=== PATIENT | male | born 1945 | race African-American/Black ===

== ENCOUNTER 2023-07-08 08:40 | Emergency (ER) | payer OTHER ==
[2023-07-08 10:11] LABS: Absolute Eosinophils 0.1 K/uL (0-0.5); Absolute Lymphocytes (CBC) 1.4 K/uL (0.7-4.9); Absolute Monocytes 0.5 K/uL (0.1-1.3); Basophils % 0.9 % (0-1.3); Eosinophils % 1.6 % (0-4.4); Hematocrit 41.5 % (39.6-49.0); Hemoglobin 12.9 g/dL (13.6-17.9); Lymphocytes % 27.5 % (15.3-44.8); MCH 24.1 pg (27.0-35.0); MCV 77.8 fL (80-100); MPV 9.3 fL (7.6-11.3); Monocytes % 9.3 % (3.3-12.3); Neutrophils % 60.7 % (41.7-73.7); Nucleated Red Blood Cells % 0.1 % (0-0); Platelets 135 thou/uL (152-406); RBC Red Blood Cell Count 5.34 M/uL (4.33-5.43); Red Cell Distribution Width 15.9 % (12.1-15.2)
--- NOTE | 2023-07-08 10:17 | RAD REPORT ---
EXAM DESCRIPTION: RAD - Chest Single View - 07/08/2023 9:59 am CLINICAL HISTORY: volume overload Chest pain. COMPARISON: CHEST SINGLE VIEW dated 05/11/2013; CHEST SINGLE VIEW dated 02/19/2010; CHEST PA AND LAT 2 VIEW dated 02/13/2010 FINDINGS: Portable technique limits examination quality. Mild to moderate pulmonary edema suspected. The heart is moderately enlarged. No displaced fractures. IMPRESSION: Mild to moderate CHF versus volume overload pattern
[2023-07-08 11:54] LABS: Albumin 3.3 g/dL (3.4-5.0); Anion Gap 6.3 mEq/L (5.0-15.0); Bilirubin Direct 0.2 mg/dL (0-0.2); Bilirubin Indirect, Calculated 0.8 mg/dL (0.2-0.8); Globulin 3.4 g/dL (2.3-3.5); Potassium 4.3 mEq/L (3.5-5.1); Protein, Total 6.7 g/dL (6.4-8.2); Troponin High Sensitivity 14.7 pg/mL (<58.9)
--- NOTE | 2023-07-08 12:05 | ER ---
Nurse's Notes [facility] Name: Glynn Bowie Age: 78 yrs Sex: Male : 1945 Arrival Date: 07/08/2023 Time: 08:40 Bed 4 Private MD: Diagnosis: Volume Overload Presentation: 07/07 08:55 Chief complaint: Patient states: [place] feet swelling for unknown amount of time but kc6 states it really started bothering him yesterday. pt also reports chest pain and dizziness. Coronavirus screen: At this time, the client does not indicate any symptoms associated with coronavirus-19. Ebola Screen: No symptoms or risks identified at this time. Initial Sepsis Screen: Does the patient meet any 2 criteria? No. Patient's initial sepsis screen is negative. Does the patient have a suspected source of infection? No. Patient's initial sepsis screen is negative. Risk Assessment: Do you want to hurt yourself or someone else? Patient reports no desire to harm self or others. Onset of symptoms was July 08, 2023. 08:55 Method Of Arrival: Wheelchair kc6 08:55 Acuity: JANESSA 3 kc6 Triage Assessment: 08:56 General: Appears in no apparent distress. comfortable, well groomed, well developed, kc6 Behavior is calm, cooperative, appropriate for age. Pain: Complains of pain in chest. EENT: No signs and/or symptoms were reported regarding the EENT system. Neuro: Level of Consciousness is awake, alert, obeys commands, Oriented to person, place, time, situation, Appropriate for age Reports dizziness. Cardiovascular: Reports chest pain, Heart tones S1 S2 present Capillary refill < 3 seconds Edema is 2+ to left foot, left toes, right foot and right toes pitting to left foot, left toes, right foot and right toes. Respiratory: Airway is patent Trachea midline Respiratory effort is even, unlabored, Respiratory pattern is regular, symmetrical. GI: No signs and/or symptoms were reported involving the gastrointestinal system. : No signs and/or symptoms were reported regarding the genitourinary system. Derm: Skin is intact, is healthy with good turgor, Skin is pink, warm \T\ dry. Musculoskeletal: No signs and/or symptoms reported regarding the musculoskeletal system. Circulation, motion, and sensation intact. Capillary refill < 3 seconds, Range of motion: intact in all extremities. Historical: - Allergies: 08:52 No Known Allergies; ll1 - PMHx: 08:52 Hypertensive disorder; ll1 - Immunization history:: Adult Immunizations up to date. - Infectious Disease History:: Denies. - Social history:: Smoking status: Patient denies any tobacco usage or history of. Screenin:57 [facility] ED Fall Risk Assessment (Adult) History of falling in the last 3 months, kc6 including since admission No falls in past 3 months (0 pts) Confusion or Disorientation No (0 pts) Intoxicated or Sedated No (0 pts) Impaired Gait No (0 pts) Mobility Assist Device Used No (0 pt) Altered Elimination No (0 pt) Score/Fall Risk Level 0 - 2 = Low Risk. Abuse screen: Denies threats or abuse. Denies injuries from another. Nutritional screening: No deficits noted. Tuberculosis screening: No symptoms or risk factors identified. Assessment: 08:57 Reassessment: please see triage. kc6 09:57 Reassessment: Patient appears in no apparent distress at this time. No changes from [facility] previously documented assessment. Patient and/or family updated on plan of care and expected duration. Pain level reassessed. Patient is alert, oriented x 3, equal unlabored respirations, skin warm/dry/pink. 10:57 Reassessment: Patient appears in no apparent distress at this time. No changes from kc6 previously documented assessment. Patient and/or family updated on plan of care and expected duration. Pain level reassessed. Patient is alert, oriented x 3, equal unlabored respirations, skin warm/dry/pink. 11:51 Reassessment: Patient appears in no apparent distress at this time. No changes from kc6 previously documented assessment. Patient and/or family updated on plan of care and expected duration. Pain level reassessed. Patient is alert, oriented x 3, equal unlabored respirations, skin warm/dry/pink. 12:34 Reassessment: Patient appears in no apparent distress at this time. Patient and/or ph family updated on plan of care and expected duration. Pain level reassessed. Patient is alert, oriented x 3, equal unlabored respirations, skin warm/dry/pink. Pt d/c home w/ prescription for Lasix, instructed to follow-up w/ PCP and belt loop cutter and to return to ED for worsening symptoms. Vital Signs: 08:55 BP 184 / 115; Pulse 73; Resp 16 S; Pulse Ox 100% on R/A; Weight 83.46 kg (R); Height 5 kc6 ft. 7 in. (R); 09:13 BP 166 / 107; kc6 10:27 BP 107 / 103; Pulse 73; Resp 16 S; Pulse Ox 100% on R/A; kc6 11:51 BP 106 / 109; Pulse 65; Resp 16 S; Pulse Ox 100% on R/A; kc6 12:05 BP 169 / 109; ec2 08:55 Body Mass Index 28.82 (83.46 kg, 170.18 cm) 6 ED Course: 08:42 Patient arrived in ED. rg4 08:52 Arm band placed on Patient placed in an exam room, on a stretcher. ll1 08:54 Janice Jiang, RN is Primary Nurse. ph 08:55 Stevie Dubon MD is Attending Physician. ec2 08:56 Triage completed. kc6 08:56 EKG completed in triage. Results shown to MD. kc6 08:58 Patient has correct armband on for positive identification. Bed in low position. Call kc6 light in reach. Side rails up X2. Adult w/ patient. Client placed on continuous cardiac and pulse oximetry monitoring. NIBP monitoring applied. security monitor on. Warm blanket given. 09:28 Amie Noel, RN is Primary Nurse. kc6 09:32 Initial lab(s) drawn, sent to lab. Inserted saline lock: 20 gauge in right antecubital ph area, using aseptic technique. Blood collected. 09:32 Basic Metabolic Panel Sent. ph 09:32 CBC with Diff Sent. ph 09:32 NT PRO-BNP Sent. ph 09:32 Troponin HS Sent. ph 09:33 Provided Education on: Estimated time for test results and use of call light. ph 09:33 LFT's Sent. ph 10:01 XRAY Chest (1 view) In Process Unspecified. EDMS 12:04 Fabiano Matute MD is Hospitalizing Provider. ec2 12:35 No provider procedures requiring assistance completed. IV discontinued, intact, ph bleeding controlled, No redness/swelling at site. Pressure dressing applied. Administered Medications: 12:25 Drug: Furosemide IVP 40 mg IVP once; give over 2 minutes Route: IVP; Site: right ph antecubital; 12:34 Follow up: Response: No adverse reaction; Medication administered at discharge. ph Medication: 09:33 VIS not applicable for this client. ph Outcome: 12:05 Decision to Hospitalize by Provider. ec2 12:12 Discharge ordered by . ec2 12:35 Discharged to home ambulatory, with friend, 12:35 Condition: good 12:35 Discharge instructions given to patient, Instructed on discharge instructions, follow up and referral plans. medication usage, Demonstrated understanding of instructions, follow-up care, medications, Prescriptions given X 1, 12:36 Patient left the ED. ph Signatures: Dispatcher [employer] Janice Biswas RN RN ph Brooklynn Montemayor rg4 Muriel Lino RN RN ll1 Amie Noel RN RN kc6 Stevie Dubon MD MD ec2
--- NOTE | 2023-07-08 12:05 | EDPHYS ---
Physician Documentation [facility] [place], [place] Name: Glynn Bowie Age: 78 yrs Sex: Male : 1945 Arrival Date: 07/08/2023 Time: 08:40 Bed 4 Private MD: ED Physician Stevie Dubon HPI: 07/07 09:10 This 78 yrs old Black Male presents to ER via Wheelchair with complaints of Swelling of ec2 Foot. 09:10 Patient arrives today for evaluation of bilateral lower extremity swelling. Patient ec2 reports that he has been having bilateral lower extremity swelling for the past several days. No reported history of heart failure, liver disease or kidney disease. Patient reports no significant difficulty breathing. Reports occasional chest pain as well.. Historical: - Allergies: 08:52 No Known Allergies; ll1 - PMHx: 08:52 Hypertensive disorder; ll1 - Immunization history:: Adult Immunizations up to date. - Infectious Disease History:: Denies. - Social history:: Smoking status: Patient denies any tobacco usage or history of. ROS: 09:10 Constitutional: as per hpi ec2 Exam: 09:10 Constitutional: GEN: NAD Head: atraumatic Eyes: EOMI Ears: External ears are ec2 normal. CV: regular rate, 2+ bilateral lower extremity edema. LUNGS: no respiratory distress ABD: non-distended SKIN: no evidence of rashes MSK: no evidence of trauma NEURO: moves all extremities equally Vital Signs: 08:55 BP 184 / 115; Pulse 73; Resp 16 S; Pulse Ox 100% on R/A; Weight 83.46 kg (R); Height 5 kc6 ft. 7 in. (R); 09:13 BP 166 / 107; kc6 10:27 BP 107 / 103; Pulse 73; Resp 16 S; Pulse Ox 100% on R/A; kc6 11:51 BP 106 / 109; Pulse 65; Resp 16 S; Pulse Ox 100% on R/A; kc6 12:05 BP 169 / 109; ec2 08:55 Body Mass Index 28.82 (83.46 kg, 170.18 cm) kc6 MDM: 09:07 Patient medically screened. ec2 09:10 Data reviewed: vital signs. ED course: Patient arrives today for evaluation of ec2 bilateral lower extremity edema. Examination remarkable for lower extremity as noted above. Will obtain lab work, chest x-ray. Evaluating for electrolyte disturbances, volume overload, CHF, kidney disease, liver disease. EKG obtained, independently reviewed and interpreted by me, shows normal sinus rhythm, rate of 70, no acute ST segment elevations, intervals are nonconcerning, PAC noted. . 10:23 ED course: CBC is reassuring, chest x-ray shows moderate CHF with volume overload. . ec2 11:57 ED course: Metabolic profile is reassuring, BNP elevated at 619, LFTs generally ec2 reassuring. Troponin within normal ranges. Patient with marked volume overload, new diagnosis of likely CHF, will admit for diuresis and further cardiac evaluation. Will give the patient Lasix, discussed with hospitalist, pending admission. . 12:08 ED course: Discussed case with the hospitalist, Dr. Matute, shows that he will see the ec2 patient outpatient, will give patient Lasix, prescribe Lasix for home and have him follow-up outpatient.. 07/07 09:10 Order name: Basic Metabolic Panel; Complete Time: 11:57 ec2 07/07 09:10 Order name: CBC with Diff; Complete Time: 10:22 ec2 07/07 09:10 Order name: NT PRO-BNP; Complete Time: 11:57 ec2 07/07 09:10 Order name: Troponin HS; Complete Time: 11:57 ec2 07/07 09:10 Order name: LFT's; Complete Time: 11:57 ec2 07/07 09:10 Order name: XRAY Chest (1 view); Complete Time: 10:22 ec2 07/07 09:10 Order name: EKG; Complete Time: : ec2 07/07 09:10 Order name: Cardiac monitoring; Complete Time: :13 ec2 07/07 09:10 Order name: EKG - Nurse/Tech; Complete Time: : ec2 07/07 09:10 Order name: IV Saline Lock; Complete Time: :32 ec2 07/07 09:10 Order name: Labs collected and sent; Complete Time: : ec2 07/07 09:10 Order name: O2 Per Protocol; Complete Time: :12 ec2 07/07 09:10 Order name: O2 Sat Monitoring; Complete Time: : ec2 07/07 10:45 Order name: Labs - recollect needed: Chemistry 2nd re collect; Complete Time: 11:00 ll1 Administered Medications: 12:25 Drug: Furosemide IVP 40 mg IVP once; give over 2 minutes Route: IVP; Site: right ph antecubital; 12:34 Follow up: Response: No adverse reaction; Medication administered at discharge. ph Disposition Summary: 07/08/23 12:12 Discharge Ordered Notes: Location: Home(07/08/23 12:12) ec2 Condition: Stable(07/08/23 12:12) ec2 Diagnosis - Volume Overload ec2 Followup: ec2 - With: Private Physician - When: - Reason: Re-evaluation by your physician Discharge Instructions: - Discharge Summary Sheet ec2 Forms: - Medication Reconciliation Form ec2 - Thank You Letter ec2 - Antibiotic Education ec2 - Prescription Opioid Use ec2 - Patient Portal Instructions ec2 - Leadership Thank You Letter ec2 Prescriptions: - Lasix 40 mg Oral tablet - take 1 tablet ORAL route once daily for 7 days; 7 tablet; Refills: 0, Product ec2 Selection Permitted Signatures: Dispatcher [employer] EDNE Janice Jiang, RN RN Muriel Galvan RN RN ll1 Amie Noel RN RN kc6 Stevie Dubon MD MD ec2 Corrections: (The following items were deleted from the chart) 09:10 09:10 BASIC METABOLIC PANEL+C.LAB.BRZ ordered. EDNE EDMS 09:10 09:10 CBC+H.LAB.BRZ ordered. EDNE EDMS 09:10 09:10 PROBNP+C.LAB.BRZ ordered. EDNE EDMS 09:10 09:10 Troponin High Sensitivity+C.LAB.BRZ ordered. EDNE EDMS 09:10 09:10 HEPATIC FUNCTION+C.LAB.BRZ ordered. 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
[2023-07-08] MEDS ORDERED: FUROSEMIDE 40 MG/4 ML VIAL ONE (12:19)
[2023-07-08 13:03] VITALS: BP 169/109; O2SAT 100
--- NOTE | 2023-07-09 17:49 | EKG ---
Test Date: 2023-07-08 Test Time: 09:01:36 Agronomy Teacher: AMOR MEASUREMENT RESULTS: Intervals: Rate: 70 VA: 178 QRSD: 84 QT: 388 QTc: 419 [place]: P: 45 VA: 178 QRS: 2 T: 7 INTERPRETIVE STATEMENTS: Sinus rhythm with premature atrial complexes Minimal voltage criteria for LVH, may be normal variant Borderline ECG Compared to ECG 07/08/2023 08:57:20 Left ventricular hypertrophy now present Electronically Signed On 07-09-23 17:46:48 CDT by Adi Cotton
--- NOTE | 2023-07-09 17:50 | EKG ---
Test Date: 2023-07-08 Test Time: 08:57:20 Front Desk Associate: AMOR MEASUREMENT RESULTS: Intervals: Rate: 72 WV: 172 QRSD: 82 QT: 374 QTc: 409 [place]: P: 142 WV: 172 QRS: -23 T: -20 INTERPRETIVE STATEMENTS: Unusual P axis, possible ectopic atrial rhythm with premature atrial complexes Abnormal ECG Compared to ECG 05/12/2013 07:15:17 Sinus rhythm no longer present First degree AV block no longer present Incomplete right bundle-branch block no longer present T-wave abnormality no longer present Electronically Signed On 07-09-23 17:46:50 CDT by Adi Cotton
== END 2023-07-08 12:36 | disposition home or self-care (01) ==
LOC: ER 08:40
DX: E87.70 Fluid overload, unspecified (principal); I10 Essential (primary) hypertension
CPT/HCPCS: 85025; 80048; 36415; 80076; 84484; 83880; 71045; J1940; 93005